=== PATIENT | female | born 1975 | race Caucasian/White ===

== ENCOUNTER → 2021-12-12 | Outpatient (CLI) | payer OTHER ==
--- NOTE | 2021-12-12 14:46 | MM ---
Reason for Exam: Additional evaluation requested from abnormal screening. Last screening mammogram was performed less than 1 month ago. Patient History: Menarche at age 12. First Full-Term at age 24. Last menstrual period: 11/23/2021 Risk Values: Jeanine 5 year model risk: 0.9%. NCI Lifetime model risk: 9.3%. Film Views: Bilateral LM views were taken. Bilateral spot compression MLO views were taken. Right spot compression CC views were taken. Prior Study Comparison: 12/07/2021 Bilateral MG screening mammo w CAD, [facility]. Tissue Density: The breast tissue is heterogeneously dense. This may lower the sensitivity of mammography. Findings: Analyzed By CAD. On the right, questioned upper outer quadrant focal asymmetry appears to disperse on spot compression. Precautionary six-month follow-up recommended. On the left, similarly, no persisting abnormality is clearly identified on spot compression or lateral views. Again, precautionary 6 month follow-up recommended. Overall Assessment: Probably benign, BI-RAD 3 Management: Diagnostic Mammogram of both breasts in 6 months. Precautionary 6 month follow-up diagnostic bilateral mammograms as there are no older priors to demonstrate stability of the screening mammogram findings. Patient should continue monthly self breast exams. This exam should not preclude additional follow-up of suspicious palpable abnormalities. Results were given to the patient verbally at the time of exam. Electronically signed and approved by: Denise Armendariz M.D. Radiologist
== END | disposition home or self-care (01) ==
LOC: RADMAMWWP 13:42
PROVIDERS: ATTEND Obstetrics & Gynecology
DX: R92.8 Other abnormal and inconclusive findings on diagnostic imaging of breast (principal)
CPT/HCPCS: 77066

== ENCOUNTER → 2022-06-06 | Outpatient (CLI) | payer OTHER ==
--- NOTE | 2022-06-06 10:12 | MM ---
Reason for Exam: Follow-up at short interval from prior study. Last screening mammogram was performed 6 month(s) ago. Patient History: Menarche at age 12. First Full-Term at age 24. Last menstrual period: 11/25/2021 Risk Values: Jeanine 5 year model risk: 0.9%. NCI Lifetime model risk: 9.3%. Prior Study Comparison: 12/07/2021 Bilateral MG screening mammo w [facility] DAVIS. 12/12/2021 Bilateral MG work up mamm w CAD PAYAM MARKS. Tissue Density: The breast tissue is heterogeneously dense. This may lower the sensitivity of mammography. Findings: Analyzed By CAD. No suspicious masses consultations or distortions. Area within the right breast upper aspect on MLO view, posterior depth is similar in size measuring 9 mm area within the left breast middle depth on MLO view is similar and felt to represent glandular tissue. Overall Assessment: Benign, BI-RAD 2 Management: Screening Mammogram of both breasts in 1 year. A clinical breast exam by your physician is recommended on an annual basis and results should be correlated with mammographic findings. This exam should not preclude additional follow-up of suspicious palpable abnormalities. Results were given to the patient verbally at the time of exam. Electronically signed and approved by: Adan Perkins DO
== END | disposition home or self-care (01) ==
LOC: RADMAMWWP 09:23
PROVIDERS: ATTEND Obstetrics & Gynecology
DX: R92.8 Other abnormal and inconclusive findings on diagnostic imaging of breast (principal)
CPT/HCPCS: 77066

== ENCOUNTER → 2023-08-22 | Outpatient (CLI) | payer OTHER ==
--- NOTE | 2023-08-22 21:05 | MM ---
Reason for Exam: Screening (asymptomatic). Last mammogram was performed 1 year(s) and 3 month(s) ago. Patient History: Menarche at age 12. First Full-Term at age 24. Perimenopausal. Risk Values: Jeanine 5 year model risk: 0.9%. NCI Lifetime model risk: 9.2%. Prior Study Comparison: 12/07/2021 Bilateral MG screening mammo w CAD, [facility]. 12/12/2021 Bilateral MG work up mamm w CAD BILAT, [facility]. 06/06/2022 Bilateral MG diagnostic mammo w CAD VIN, [facility]. Tissue Density: The breast tissue is heterogeneously dense. This may lower the sensitivity of mammography. Findings: Analyzed By CAD. Unchanged focal asymmetry right upper outer quadrant and unchanged intramammary lymph node left upper-outer quadrant. There is no suspicious group of microcalcifications or new suspicious mass in either breast. Overall Assessment: Benign, BI-RAD 2 Management: Screening Mammogram of both breasts in 1 year. . Patient should continue monthly self-breast exams. A clinical breast exam by your physician is recommended on an annual basis. This exam should not preclude additional follow-up of suspicious palpable abnormalities. Note on Jeanine scores and lifetime risk: 1. A Jeanine score greater than 3% is considered moderate risk. If this is the case, consider specialist referral to assess eligibility for a risk reducing agent. 2. If overall lifetime risk for the development of breast cancer is 20% or higher, the patient may qualify for future screening with alternating mammogram and breast MRI. Electronically signed and approved by: Denise Armendariz M.D. Radiologist
== END | disposition home or self-care (01) ==
LOC: RADMAMWWP 08:24
PROVIDERS: ATTEND Obstetrics & Gynecology
DX: Z12.31 Encounter for screening mammogram for malignant neoplasm of breast (principal)
CPT/HCPCS: 77067